=== PATIENT | male | born 1940 | race Native Hawaiian/Other Pacific Islander ===

== ENCOUNTER 2016-11-15 09:05 | Inpatient (IN) | payer MEDICARE, MEDICAID ==
[~2016-11-15] VITALS: Ht 157.5 cm; Wt 61.2 kg
[~2016-11-15 09:05] MED LIST: *INS REG3 SQ; ACET-868 GT; ALBU2.5V13 NEB; ALLA266C2 TP; ASCO500C16 GT; ASPI81TA2 GT; Blood Sugar Diagnostic IN; CHOL100040 GT; DEXT1DRO3 EACHEYE; DOCU50LI GT; Gel Dressing TP; HYDR-3326 GT; INSU100V10 SQ; INSU100V28 SQ; MAGN400O6 GT; METO25TA20 GT; METO25TA3 PO; NEPRO; NEPROVITE GT; NITR0.4T6 SL; Nutritional Supplement GT; OMEP40CA37 GT; POTA40LI2 GT; TRAM50TA2 GT; VORI200T PO
[2016-11-15] MEDS ORDERED: IV NS 0.9% 500 ML BAG IV ONE (09:30)
[2016-11-15 09:49] LABS: BASOPHILS # (AUTO) 0.4 /CMM (0.0-0.2); BASOPHILS % (AUTO) 1.3 % (0.0-2.0); DIFF TOTAL % 100 %; EOSINOPHILS # (AUTO) 1.5 /CMM (0.0-0.7); EOSINOPHILS % (AUTO) 5.2 % (0.0-6.0); HEMATOCRIT 41 % (39-51); HEMOGLOBIN 12.8 g/dL (13.5-17.5); LYMPHOCYTES # (AUTO) 2.7 /CMM (0.8-4.8); LYMPHOCYTES % (AUTO) 9.3 % (20.0-44.0); MEAN CORPUSCULAR HEMOGLOBIN 29 PG (26.0-33.0); MEAN CORPUSCULAR HGB CONC 31 g/dl (31.0-36.0); MEAN CORPUSCULAR VOLUME 94 fL (80-96); MONOCYTES # (AUTO) 0.3 /CMM (0.1-1.30); MONOCYTES % (AUTO) 1.1 % (2.0-12.0); NEUTROPHILS # (AUTO) 23.7 /CMM (1.8-8.9); NEUTROPHILS % (AUTO) 83.1 % (43.0-81.0); PLATELET COUNT (AUTO) 302 /CMM (150-450); RED BLOOD CELL COUNT(AUTO) 4.39 MIL/uL (4.5-6.0); WHITE BLOOD COUNT (AUTO) 28.6 K/uL (4.3-11.0)
[2016-11-15 10:02] LABS: INR 0.99 (0.87-1.13); PROTHROMBIN TIME 10.4 SECS (9.5-12.7)
[2016-11-15 10:04] LABS: ALBUMIN 3.4 g/dL (3.4-5.0); BILIRUBIN,DIRECT 0.1 mg/dL (0.0-0.2); BILIRUBIN,TOTAL 0.3 mg/dL (0.2-1.0); CALCIUM, SERUM 10.8 mg/dL (8.5-10.1); CREATININE 3.8 mg/dL (0.6-1.3); INDIRECT BILIRUBIN 0.2 mg/dL (0.0-1.1); POTASSIUM 4.2 mmol/L (3.5-5.1); TOTAL PROTEIN, SERUM 7.9 g/dL (6.4-8.2)
[2016-11-15 10:06] LABS: TROPONIN I 0.09 ng/mL (0.00-0.056)
[2016-11-15 10:10] VITALS: BP 139/80
[2016-11-15 10:10] LABS: BAND % (MANUAL) 3 % (0.0-5.0); EOSINOPHILS % (MANUAL) 3 % (0-4); LYMPHOCYTES % (MANUAL) 6 % (16-48); PLATELET ESTIMATE ADEQUATE
[2016-11-15 10:11] LABS: RBC MORPHOLOGY COMMENT NORMAL RBC MORPH
[2016-11-15] MEDS ORDERED: ATOR40TA GT (10:25)
[2016-11-15] MEDS ORDERED: DIPH25CA6 GT (10:25)
[2016-11-15] MEDS ORDERED: CALC667T2 GT (10:25)
[2016-11-15] MEDS ORDERED: LORA1TAB GT (10:25)
[2016-11-15] MEDS ORDERED: ASPI81TA2 GT (10:25)
[2016-11-15] MEDS ORDERED: FOLI0.8T2 GT (10:25)
[2016-11-15] MEDS ORDERED: HYDR10SY12 GT (10:25)
[2016-11-15] MEDS ORDERED: FERR220S2 GT (10:25)
[2016-11-15] MEDS ORDERED: CHOL100044 GT (10:25)
[2016-11-15] MEDS ORDERED: CARV3.12 GT (10:25)
[2016-11-15] MEDS ORDERED: SENN8.6T6 GT (10:25)
[2016-11-15] MEDS ORDERED: HYDR-3326 GT ×2 (10:25)
[2016-11-15] MEDS ORDERED: ONDA4TAB5 GT (10:25)
[2016-11-15] MEDS ORDERED: NUTR100037 GT (10:30)
[2016-11-15 11:45] VITALS: BP 118/68
[2016-11-15] MEDS ORDERED: LORAZEPAM 1 MG TABLET GT PRN (12:00)
[2016-11-15] MEDS ORDERED: hydrOXYzine HCL SYRUP 10 MG/5 ML UDC GT PRN (12:00)
[2016-11-15] MEDS ORDERED: diphenhydrAMINE HCL 25 MG CAPSULE PO PRN (12:00)
[2016-11-15] MEDS ORDERED: HYDROCODONE/APAP 5/325MG 1 EACH TABLET GT PRN (12:00)
[2016-11-15] MEDS ORDERED: ACETAMINOPHEN 325 MG TABLET PO PRN ×2 (12:00→14:30)
[2016-11-15] MEDS: CALCIUM ACETATE 667 MG TABLET GT SCH ×2 (12:26→16:08)
[2016-11-15] MEDS ORDERED: RENAL NOVASOURCE 1,000 ML BOTTLE GT PRN ×2 (12:30→14:00)
[2016-11-15] MEDS ORDERED: ONDANSETRON 4 MG TAB.RAPDIS PO PRN (12:30)
[2016-11-15] MEDS ORDERED: ZOLPIDEM TARTRATE 5 MG TABLET PO PRN (14:30)
[2016-11-15] MEDS ORDERED: MAGNESIUM HYDROXIDE 30 ML UDC PO PRN (14:30)
[2016-11-15] MEDS ORDERED: ONDANSETRON HCL/PF 4 MG/2 ML VIAL IVP PRN (14:30)
[2016-11-15] MEDS ORDERED: Z GUARD REMEDY 2 OZ OINT TP PRN (14:30)
[2016-11-15] MEDS ORDERED: HYDROCODONE/APAP 5/325MG 1 EACH TABLET PO PRN (14:30)
[2016-11-15] MEDS ORDERED: DEXTROSE 50%-WATER 50 ML DISP.SYRIN IV PRN (14:30)
[2016-11-15] MEDS ORDERED: MAG HYDROX/AL HYDROX/SIMETH 30 ML UDC PO PRN (14:30)
[2016-11-15] MEDS ORDERED: *INSULIN REGULAR(HUMULIN R)HUM 100 UNIT/ML VIAL SQ PRN (14:30)
[2016-11-15] MEDS ORDERED: SECONDARY IV SET 1 EA INFUS.SET MC ONE (15:41)
[2016-11-15] MEDS ORDERED: IV SET PRIMARY PUMP SET 1 EA INFUS.SET MC ONE (15:41)
[2016-11-15] MEDS ORDERED: IV NS 0.9% 250 ML IV ONE (15:41)
[2016-11-15 16:00] VITALS: BP 116/66
[2016-11-15] MEDS: FERROUS SULFATE UDC 300 MG/5 ML UDC GT SCH (16:08)
[2016-11-15] MEDS: MEROPENEM 500 MG in IV NS 0.9% 50 ML IV SCH (16:08)
[2016-11-15] MEDS: CARVEDILOL 3.125 MG TABLET GT SCH (16:09)
[2016-11-15] MEDS: BLOOD SUGAR DIAGNOSTIC 1 EACH STRIP VI SCH ×2 (17:04→21:56)
[2016-11-15] MEDS: INSULIN REGULAR, HUMAN 100 UNIT/ML 3 ML VIAL SQ PRN (17:08)
[2016-11-15 20:00] VITALS: BP 133/67
[2016-11-15] MEDS ORDERED: MEROPENEM 500 MG in IV NS 0.9% 50 ML IV SCH (21:00)
[2016-11-16] VITALS (7 sets, daily range): BP systolic 116–133; BP diastolic 61–69
[2016-11-16] MEDS: SENNOSIDES 8.6 MG TABLET GT SCH ×2 (00:39→21:05)
[2016-11-16] MEDS: ATORVASTATIN 40 MG TABLET GT SCH ×2 (00:39→21:05)
[2016-11-16] MEDS ORDERED: ALBUTEROL FS 2.5 MG/0.5 ML VIAL.NEB ONE (04:48)
[2016-11-16] MEDS ORDERED: IPRATROPIUM NEB FS 0.5 MG/2.5 ML AMPUL.NEB ONE (04:48)
[2016-11-16] MEDS: IPRATROPIUM NEB FS 0.5 MG/2.5 ML AMPUL.NEB NEB SCH ×4 (04:53→19:33)
[2016-11-16] MEDS: ALBUTEROL FS 2.5 MG/0.5 ML VIAL.NEB NEB SCH ×4 (04:53→19:33)
[2016-11-16] MEDS: BLOOD SUGAR DIAGNOSTIC 1 EACH STRIP VI SCH ×4 (06:32→21:13)
[2016-11-16 07:17] LABS: BASOPHILS % (AUTO) 0.5 % (0.0-2.0); DIFF TOTAL % 100 %; EOSINOPHILS # (AUTO) 0.8 /CMM (0.0-0.7); EOSINOPHILS % (AUTO) 9.1 % (0.0-6.0); HEMATOCRIT 30 % (39-51); HEMOGLOBIN 9.7 g/dL (13.5-17.5); LYMPHOCYTES # (AUTO) 0.7 /CMM (0.8-4.8); MEAN CORPUSCULAR HEMOGLOBIN 30 PG (26.0-33.0); MEAN CORPUSCULAR HGB CONC 33 g/dl (31.0-36.0); MEAN CORPUSCULAR VOLUME 94 fL (80-96); MONOCYTES # (AUTO) 0.6 /CMM (0.1-1.30); MONOCYTES % (AUTO) 6.9 % (2.0-12.0); NEUTROPHILS % (AUTO) 75.5 % (43.0-81.0); PLATELET COUNT (AUTO) 124 /CMM (150-450); RED BLOOD CELL COUNT(AUTO) 3.19 MIL/uL (4.5-6.0); WHITE BLOOD COUNT (AUTO) 9.3 K/uL (4.3-11.0)
[2016-11-16 07:44] LABS: CALCIUM, SERUM 9.2 mg/dL (8.5-10.1); CREATININE 2.8 mg/dL (0.6-1.3); PHOSPHORUS 1.6 mg/dL (2.5-4.9)
[2016-11-16] MEDS: FERROUS SULFATE UDC 300 MG/5 ML UDC GT SCH ×2 (08:58→16:32)
[2016-11-16] MEDS: CALCIUM ACETATE 667 MG TABLET GT SCH ×3 (08:58→16:32)
[2016-11-16] MEDS: CHOLECALCIFEROL 1,000 UNIT TABLET (VIT D3) GT SCH (08:59)
[2016-11-16] MEDS: PANTOPRAZOLE 40 MG/PACK PACK GT SCH (08:59)
[2016-11-16] MEDS: VIT B CMPLX 3/FA/VIT C/BIOTIN 1 TAB TABLET PO SCH (08:59)
[2016-11-16] MEDS: CARVEDILOL 3.125 MG TABLET GT SCH ×2 (08:59→16:33)
[2016-11-16] MEDS: ASPIRIN 81 MG TAB.CHEW GT SCH (08:59)
[2016-11-16] MEDS: HYDROCODONE/APAP 5/325MG 1 EACH TABLET GT SCH (09:00)
[2016-11-16] MEDS ORDERED: Medication Not On Formulary EA (Omeprazole 40 MG) GT SCH (09:00)
[2016-11-16] MEDS: HEPARIN SODIUM, PORCINE 5000 UNITS/1 ML VIAL SQ SCH ×2 (11:25→21:05)
[2016-11-16] MEDS ORDERED: Sodium Phosphate 7.5 MMOL in IV D5W 100 ML IV ONE (12:00)
[2016-11-16] MEDS ORDERED: SECONDARY IV SET 1 EA INFUS.SET MC ONE (12:42)
[2016-11-16] MEDS: MEROPENEM 500 MG in IV NS 0.9% 50 ML IV SCH (16:32)
[2016-11-16] MEDS ORDERED: NEUTRA PHOS 1 POWD.PACKET NG ONE (17:00)
[2016-11-16] MEDS: INSULIN REGULAR, HUMAN 100 UNIT/ML 3 ML VIAL SQ PRN (17:13)
[2016-11-17] VITALS (13 sets, daily range): BP systolic 60–163; BP diastolic 51–82
[2016-11-17] MEDS: ALBUTEROL FS 2.5 MG/0.5 ML VIAL.NEB NEB SCH ×3 (01:22→13:35)
[2016-11-17] MEDS: IPRATROPIUM NEB FS 0.5 MG/2.5 ML AMPUL.NEB NEB SCH ×3 (01:22→13:35)
[2016-11-17] MEDS: BLOOD SUGAR DIAGNOSTIC 1 EACH STRIP VI SCH ×3 (06:34→16:14)
[2016-11-17 06:40] LABS: BASOPHILS % (AUTO) 0.5 % (0.0-2.0); DIFF TOTAL % 100 %; EOSINOPHILS # (AUTO) 0.9 /CMM (0.0-0.7); EOSINOPHILS % (AUTO) 10.8 % (0.0-6.0); HEMATOCRIT 29 % (39-51); HEMOGLOBIN 9.6 g/dL (13.5-17.5); LYMPHOCYTES # (AUTO) 0.8 /CMM (0.8-4.8); LYMPHOCYTES % (AUTO) 8.6 % (20.0-44.0); MEAN CORPUSCULAR HEMOGLOBIN 31 PG (26.0-33.0); MEAN CORPUSCULAR HGB CONC 33 g/dl (31.0-36.0); MEAN CORPUSCULAR VOLUME 93 fL (80-96); MONOCYTES # (AUTO) 0.5 /CMM (0.1-1.30); MONOCYTES % (AUTO) 6.2 % (2.0-12.0); NEUTROPHILS # (AUTO) 6.5 /CMM (1.8-8.9); NEUTROPHILS % (AUTO) 73.9 % (43.0-81.0); PLATELET COUNT (AUTO) 124 /CMM (150-450); RED BLOOD CELL COUNT(AUTO) 3.13 MIL/uL (4.5-6.0); WHITE BLOOD COUNT (AUTO) 8.8 K/uL (4.3-11.0)
[2016-11-17 07:46] LABS: CALCIUM, SERUM 8.9 mg/dL (8.5-10.1); CREATININE 3.6 mg/dL (0.6-1.3); POTASSIUM 4.2 mmol/L (3.5-5.1)
[2016-11-17] MEDS: VIT B CMPLX 3/FA/VIT C/BIOTIN 1 TAB TABLET PO SCH (08:05)
[2016-11-17] MEDS: ASPIRIN 81 MG TAB.CHEW GT SCH (08:05)
[2016-11-17] MEDS: CALCIUM ACETATE 667 MG TABLET GT SCH ×3 (08:05→16:13)
[2016-11-17] MEDS: CARVEDILOL 3.125 MG TABLET GT SCH ×2 (08:06→16:14)
[2016-11-17] MEDS: HYDROCODONE/APAP 5/325MG 1 EACH TABLET GT SCH (08:06)
[2016-11-17] MEDS: FERROUS SULFATE UDC 300 MG/5 ML UDC GT SCH ×2 (08:06→16:13)
[2016-11-17] MEDS: CHOLECALCIFEROL 1,000 UNIT TABLET (VIT D3) GT SCH (08:06)
[2016-11-17] MEDS: PANTOPRAZOLE 40 MG/PACK PACK GT SCH (08:07)
[2016-11-17] MEDS: HEPARIN SODIUM, PORCINE 5000 UNITS/1 ML VIAL SQ SCH (08:07)
[2016-11-17 08:49] LABS: TROPONIN I 0.818 ng/mL (0.00-0.056)
[2016-11-17 09:22] LABS: THYROID STIMULATING HORMONE 3.035 uIU/mL (0.358-3.74)
[2016-11-17] MEDS ORDERED: MUPIROCIN OINT 2% 22 GM TUBE SCH (11:00)
[2016-11-17] MEDS ORDERED: HYDROGEL DRESSING 90 GM TUBE TP PRN (11:00)
[2016-11-17] MEDS ORDERED: HYDROGEL DRESSING 90 GM TUBE TP SCH (11:00)
[2016-11-17] MEDS ORDERED: MERO500V3 IV (14:18)
[2016-11-17] MEDS: MEROPENEM 500 MG in IV NS 0.9% 50 ML IV SCH (16:13)
== END 2016-11-17 22:05 | DRG 871 ==
LOC: ER 09:06 → TELE1 10:56
PROVIDERS: ADMIT Internal Medicine; ATTEND Internal Medicine
PROC: 5A1945Z Respiratory Ventilation, 24-96 Consecutive Hours (ICD-10-PCS; principal; 2016-11-15)
PROC: 5A1D60Z (ICD-10-PCS; 2016-11-15)
DX: A41.9 Sepsis, unspecified organism (principal); I21.4 Non-ST elevation (NSTEMI) myocardial infarction; N18.6 End stage renal disease; J96.01 Acute respiratory failure with hypoxia; J69.0 Pneumonitis due to inhalation of food and vomit; L89.154 Pressure ulcer of sacral region, stage 4; K72.00 Acute and subacute hepatic failure without coma; I12.0 Hypertensive chronic kidney disease with stage 5 chronic kidney disease or end stage renal disease; Z99.11 Dependence on respirator [ventilator] status; Z99.2 Dependence on renal dialysis; E11.22 Type 2 diabetes mellitus with diabetic chronic kidney disease; E78.5 Hyperlipidemia, unspecified; E87.70 Fluid overload, unspecified; G40.909 Epilepsy, unspecified, not intractable, without status epilepticus; K21.9 Gastro-esophageal reflux disease without esophagitis; Z88.0 Allergy status to penicillin; D63.8 Anemia in other chronic diseases classified elsewhere; E83.52 Hypercalcemia; I49.9 Cardiac arrhythmia, unspecified; R74.8 Abnormal levels of other serum enzymes; Z93.1 Gastrostomy status; Z93.0 Tracheostomy status; R65.20 Severe sepsis without septic shock
CPT/HCPCS: 31720; 36415; 71010-TC; 76705-TC; 80048-TC; 80076-TC; 82306; 82728-TC; 82962-TC; 83540-TC; 83605-TC; 83735-TC; 84100-TC; 84439-TC; 84443-TC; 84484-TC; 85025-TC; 85730-TC; 87040-TC; 87081-TC; 90935-TC; 94003-TC; 94760-TC; A4216; A4606; A4623; A6248; A6402; A7526; A9563; J1644; J1815; J2185; J7050; J7060; Q0177; Z7610

== ENCOUNTER 2017-07-11 20:06 | Inpatient (IN) | payer MEDICARE, OTHER ==
[~2017-07-11] VITALS: Ht 172.7 cm; Wt 66.9 kg
[~2017-07-11 20:06] MED LIST changes: -*INS REG3 SQ; -ALBU2.5V13 NEB; -ALLA266C2 TP; -ASCO500C16 GT; +ATOR40TA GT; -Blood Sugar Diagnostic IN; +CALC667T2 GT; +CARV3.12 GT; -CHOL100040 GT; +CHOL100044 GT; -DEXT1DRO3 EACHEYE; +DIPH25CA6 GT; -DOCU50LI GT; +FERR220S2 GT; +FOLI0.8T2 GT; -Gel Dressing TP; +HYDR10SY12 GT; -INSU100V10 SQ; -INSU100V28 SQ; +LORA1TAB GT; -MAGN400O6 GT; +MERO500V3 IV; -METO25TA20 GT; -METO25TA3 PO; -NEPRO; -NEPROVITE GT; -NITR0.4T6 SL; +NUTR100037 GT; -Nutritional Supplement GT; +ONDA4TAB5 GT; -POTA40LI2 GT; +SENN8.6T6 GT; -TRAM50TA2 GT; -VORI200T PO
--- NOTE | 2017-07-11 20:20 | NUR ---
PT SAAD FROM [facility] FOR NAUSEA AND VOMITING COFFEE GROUND EMESIS X 1.5 HOURS. PT AO RR EVEN AND UNLABORED. TRACH INTACT AND PATENT CONNECTED TO VENT WITH PRESCRIBED SETTINGS. PT WITH GTUBE INTACT AND PATENT. NO S/S INFECTION, - RESIDUALS. PT GOWNED AND PLACED ON MONITOR WAITING FOR MD MATTHEWS.
--- NOTE | 2017-07-11 20:21 | NUR ---
VENT SETTINGS" AC 16 VT 550 FI02 30% PEEP 5
[2017-07-11 20:41] VITALS: BP 150/103
--- NOTE | 2017-07-11 20:44 | NUR ---
PT REC'D TRACHED PORTEX 8 VIA [facility] VENT SETTING GIVEN FROM TRANSPORT RT. NO RESP DISTRESS NOTED. SX THICK YELLOW MOD AMT OF SECRETIONS. BUILDING PRESSURE WASHER CUFF PRESSURE NOTED. ALARMS ARE SET AND AUDIBLE PER POLICY. VENT PLUGGED INTO RED OUTLET. AMBU BAG BEDSIDE. WILL CONTINUE TO MONITOR PT. Addendum: 07/11/17 at 2044 by MERT RIOS RT Amended: Links added.
--- NOTE | 2017-07-11 21:14 | NUR ---
PT TO RADIOLOGY FOR CT, RT WITH PT.
[2017-07-11 21:15] LABS: BASOPHILS % (AUTO) 0.1 % (0.0-2.0); EOSINOPHILS # (AUTO) 0.1 /CMM (0.0-0.7); EOSINOPHILS % (AUTO) 0.5 % (0.0-6.0); HEMATOCRIT 37 % (39-51); HEMOGLOBIN 11.8 g/dL (13.5-17.5); LYMPHOCYTES # (AUTO) 0.5 /CMM (0.8-4.8); LYMPHOCYTES % (AUTO) 3.3 % (20.0-44.0); MEAN CORPUSCULAR HEMOGLOBIN 30 PG (26.0-33.0); MEAN CORPUSCULAR HGB CONC 32 g/dl (31.0-36.0); MEAN CORPUSCULAR VOLUME 95 fL (80-96); MONOCYTES # (AUTO) 0.3 /CMM (0.1-1.30); NEUTROPHILS # (AUTO) 14.9 /CMM (1.8-8.9); NEUTROPHILS % (AUTO) 94.1 % (43.0-81.0); PLATELET COUNT (AUTO) 336 /CMM (150-450); RDW COEFFICIENT OF VARIATION 18.7 (11.5-15.0); RED BLOOD CELL COUNT(AUTO) 3.92 MIL/uL (4.5-6.0); WHITE BLOOD COUNT (AUTO) 15.8 K/uL (4.3-11.0)
[2017-07-11 21:23] LABS: INR 0.99 (0.87-1.13); PROTHROMBIN TIME 10.3 SECS (9.5-12.7)
[2017-07-11 21:25] LABS: ALANINE AMINOTRANSFERASE 136 U/L (12-78); ALBUMIN 3.7 g/dL (3.4-5.0); ALKALINE PHOSPHATASE 242 U/L (46-116); ASPARTATE AMINOTRANSFERASE 108 U/L (15-37); BILIRUBIN,DIRECT 0.1 mg/dL (0.0-0.2); BILIRUBIN,TOTAL 0.4 mg/dL (0.2-1.0); CALCIUM, SERUM 10.4 mg/dL (8.5-10.1); CARBON DIOXIDE 28 mmol/L (21-32); CHLORIDE 101 mmol/L (98-107); CREATININE 3.7 mg/dL (0.6-1.3); GLUCOSE 201 mg/dL (74-106); LIPASE 326 U/L (73-393); POTASSIUM 3.8 mmol/L (3.5-5.1); SODIUM SERUM 140 mmol/L (136-145); TOTAL PROTEIN, SERUM 8.5 g/dL (6.4-8.2); UREA NITROGEN, BLOOD 43 mg/dL (7-18)
--- NOTE | 2017-07-11 21:38 | NUR ---
PT RETURNED FROM CT
--- NOTE | 2017-07-11 21:59 | NUR ---
PAGED DR MARTY DELANEY UKE DRIVER FOR Sissy HEARD
--- NOTE | 2017-07-11 22:01 | NUR ---
GASTRO OCCULT COLLECTED VIA GT. PER DR. TURNER TO HOLD NGT. CONTINUOUS SUCTION VIA GT AT THIS TIME.
[2017-07-11 22:25] VITALS: BP 102/61
--- NOTE | 2017-07-11 22:27 | NUR ---
PT APPEARS COMFORTABLE AT THIS TIME. NAD NOTED. FAMILY AT BEDSIDE
--- NOTE | 2017-07-11 22:30 | NUR ---
RECEIVED REPORT FROM DR. MARTY DELANEY
[2017-07-12] VITALS (7 sets, daily range): BP systolic 94–116; BP diastolic 45–67
--- NOTE | 2017-07-12 00:02 | NUR ---
REPORT GIVEN KITA BRYANT FOR [facility] [id number]
--- NOTE | 2017-07-12 00:11 | NUR ---
PT TRANSFERRED PER ACLS PROTOCOL.
--- NOTE | 2017-07-12 00:15 | NUR ---
VIVIANA ADMITTING RN NOTE ADMITTED 77 YR OLD MALE SFP FOR N/V COFFEE GROUND EMESIS TO ER, ADMITTING DIAGNOSIS GIB. PT ON VENT AC 16, TV 500, FIO2 30% AND PEEP +5. AWAKE NON VERBAL, ABLE TO NODE YES OR NO WHEN ASKED QUESTIONS, DENIES ANY PAIN OR DISTRESS, RECEIVED WITH ORDER FOR LOW INTERMITTENT SUCTION VIA GT, ONLY 50 ML BROWN GASTRIC CONTENT SUCTIONED OUT. HEAD TO TOE SKIN ASSESSMENT DONE PER PROTOCOL, WITH PICTURES TAKEN AND FILED. ADMITTING MD NOTIFIED WITH ALL ORDERS CARRIED OUT. ALL PT NEEDS MET AT THIS TIME WELL SAFETY MEASURES IN PLACE. WILL CONT' TO MONITOR PT, ON D5 1/2 NS @ 40 ML/HR RUNNING ON R HAND 20 #G, WELL TOLERATED, NO INFILTRATION NOTED. PT HAS ALSO A LAC# 18 G FLUSHED AND PATENT.
--- NOTE | 2017-07-12 02:19 | NUR ---
SPOKE TO DR. MARTY DELANEY TO CLARIFY ADMISSION ORDERS, INFORMED MD, MINIMAL OUTPUT IS COMING OUT OF GT LOW INTERMITTENT SUCTION, AND MUCUS COLOR. PER MD STOP LOW INTERMITTENT SUCTION AND PLACE PATIENT NPO EXCEPT MEDS. NOTED. INFORMED PRIMARY NURSE.
--- NOTE | 2017-07-12 07:42 | NUR ---
VIVIANA RN NOTE PATIENT IN BED ,AWAKE OPEN HIS EYES WHEN CALLING HIS NAME ,, ON TELE MONITOR SR 72 , WITH TRACH TO VENT SETTING ORDERED, AMBU BAG AT HOB AT ALL TIME, NPO AT THIS TIME ,ON IVF ORDERED, ON IVF ORDERED, HL ON LT AC AND RT HAND INTACT, AND PATENT , BED IN LOWEST AND LOCKED POSITION , CALL LIGHT WITHIN REACH , PLAN OF CARE DECLASSED WITH PATIENT , WILL CONT TO MONITOR CLOSELY
[2017-07-12 08:02] LABS: BASOPHILS % (AUTO) 0.4 % (0.0-2.0); EOSINOPHILS # (AUTO) 0.1 /CMM (0.0-0.7); EOSINOPHILS % (AUTO) 1.4 % (0.0-6.0); HEMATOCRIT 32 % (39-51); LYMPHOCYTES # (AUTO) 1.2 /CMM (0.8-4.8); LYMPHOCYTES % (AUTO) 12.3 % (20.0-44.0); MEAN CORPUSCULAR HEMOGLOBIN 30 PG (26.0-33.0); MEAN CORPUSCULAR HGB CONC 32 g/dl (31.0-36.0); MEAN CORPUSCULAR VOLUME 95 fL (80-96); MONOCYTES # (AUTO) 1.2 /CMM (0.1-1.30); MONOCYTES % (AUTO) 12.1 % (2.0-12.0); NEUTROPHILS # (AUTO) 7.4 /CMM (1.8-8.9); NEUTROPHILS % (AUTO) 73.8 % (43.0-81.0); PLATELET COUNT (AUTO) 272 /CMM (150-450); RDW COEFFICIENT OF VARIATION 18.2 (11.5-15.0); RED BLOOD CELL COUNT(AUTO) 3.32 MIL/uL (4.5-6.0)
[2017-07-12 08:27] LABS: CALCIUM, SERUM 9.5 mg/dL (8.5-10.1); CARBON DIOXIDE 24 mmol/L (21-32); CHLORIDE 106 mmol/L (98-107); CREATININE 4.5 mg/dL (0.6-1.3); GLUCOSE 141 mg/dL (74-106); PHOSPHORUS 4.8 mg/dL (2.5-4.9); POTASSIUM 3.8 mmol/L (3.5-5.1); SODIUM SERUM 145 mmol/L (136-145); UREA NITROGEN, BLOOD 48 mg/dL (7-18)
--- NOTE | 2017-07-12 12:00 | NUR ---
VIVIANA RN NOTE SPOKE WITH DR DELANEY NOTIFIED THAT NO MORE GI BLEEDING NOTED , STILL ON NPO , OK TO PLACE ON DVT PUMP BOTH LEGS , ALSO STATED THAT DR MART GI DOCTOR WILL SEE PATIENT SOON, WILL F\U WITH DR HUFF ALSO PER RESPIRATORY PT ON VENT WILL F\U
--- NOTE | 2017-07-12 14:30 | NUR ---
PREFABRICATED HOUSES TRIMMER NOTE KEEP CLEAN DRY , AT BEDSIDE , DR HUFF DOCTOR OF OPTOMETRY NOTIFIED ABOUT THIS PATIENT VENT , WILL CONT TO MONITOR CLOSELY
--- NOTE | 2017-07-12 15:56 | NUR ---
[place] PACKER NOTE DR MART AT BEDSIDE, OFFERED TO EGD BUT FAMILY REFUSED TO DO , SIGNED CONSENT FOR DEBRIDEMENT OF SACRAL
[2017-07-12 16:44] LABS: ABG BASE EXCESS -0.5 mmol/L; ABG OXYGEN SATURATION 96.4 % (92.0-98.5); ABG PCO2 32.7 mmHg (35.0-45.0); ABG PH 7.461 (7.350-7.450); ABG PO2 93.6 mmHg (75.0-100.0); AaDO2 81.9 mmHg; COHb 0.3 % (0.5-1.5); MetHb 0.6 % (0.0-1.5); O2Hb 95.5 % (94.0-97.0); PEEP,BG 5 cm H2O; SITE, ABG Right Radial; VT, ABG 550 mL
--- NOTE | 2017-07-12 17:36 | NUR ---
VIVIANA RN NOTE [facility] APPALLED ORDERED ,KEEP CLEAN DRY
--- NOTE | 2017-07-12 18:25 | NUR ---
VIVIANA RN NOTE ALL NEEDS ATTENDED, NOT IN ACTE DISTRESS, FAMILY AT BEDSIDE
--- NOTE | 2017-07-12 19:30 | NUR ---
RN INITIAL NOTES RECEIVED PATIENT IN BED, AWAKE, ALERT AND ORIENTED X1-2, NONVERBAL DUE TO TRACH, BUT ABLE TO NOD YES/NO. TRACH MIDLINE AND INTACT, ON MECHANICAL VENT AT PRESCRIBED SETTINGS, TOLERATING WELL, FREE FROM ANY S/S OF RESPIRATORY DISTRESS. PATIENT ON TELEMETRY MONITORING, REVEALING SINUS RHYTHM WITH 1ST DEGREE AV BLOCK, HR = 68 AT THIS TIME. GT PATENT AND INTACT, KEPT CLAMPED AT THIS TIME. NOTED WITH RIGHT CHEST WALL HD CATH, DRESSING CLEAN, DRY, AND INTACT. CALL LIGHT LEFT WITHIN EASY RANGE, BED IN LOWEST AND LOCKED POSITION. WILL CONTINUE TO CLOSELY MONITOR
[2017-07-13] VITALS: BP 109/63
[2017-07-13 04:00] VITALS: BP 121/69
--- NOTE | 2017-07-13 07:00 | NUR ---
RN CLOSING NOTES PATIENT ENDORSED TO THE AM SHIFT NURSE FOR SHAY. NO ACUTE EVENTS OCCURRED THROUGHOUT SHIFT.
--- NOTE | 2017-07-13 07:00 | NUR ---
RN NOTES RECEIVED PATIENT ON BED,A/Ox3, MOUTH WORDS , VENT/TRACH DEPENDENT , TOLERATING CURRENT VENT SETTING WELL, TRACH MIDLINE AND INTACT, NO DISTRESS NOTED, ON TELE SR WITH ST DEGREE AV BLOCK IN 50'S, GT PATENT AND INTACT, KEPT CLAMPED AT THIS TIME. RIGHT CHEST WALL HD CATH, DRESSING CLEAN, DRY, AND INTACT. CALL LIGHT WITHIN EASY REACH, BED IN LOWEST AND LOCKED POSITION. CONTINUE TO MONITOR PT CLOSELY .
[2017-07-13 07:25] LABS: CALCIUM, SERUM 9.9 mg/dL (8.5-10.1); CARBON DIOXIDE 25 mmol/L (21-32); CHLORIDE 105 mmol/L (98-107); CREATININE 6.2 mg/dL (0.6-1.3); GLUCOSE 129 mg/dL (74-106); MAGNESIUM 3.1 mg/dL (1.8-2.4); PHOSPHORUS 5.2 mg/dL (2.5-4.9); POTASSIUM 3.9 mmol/L (3.5-5.1); SODIUM SERUM 144 mmol/L (136-145); UREA NITROGEN, BLOOD 66 mg/dL (7-18)
[2017-07-13 07:26] LABS: IRON, SERUM 30 ug/dl (50-175); TOTAL IRON BINDING CAPACITY 184 ug/dl (250-450)
[2017-07-13 07:37] LABS: BASOPHILS # (AUTO) 0.1 /CMM (0.0-0.2); BASOPHILS % (AUTO) 0.7 % (0.0-2.0); EOSINOPHILS # (AUTO) 0.7 /CMM (0.0-0.7); EOSINOPHILS % (AUTO) 6.9 % (0.0-6.0); HEMATOCRIT 32 % (39-51); HEMOGLOBIN 9.9 g/dL (13.5-17.5); LYMPHOCYTES # (AUTO) 1.1 /CMM (0.8-4.8); LYMPHOCYTES % (AUTO) 10.5 % (20.0-44.0); MEAN CORPUSCULAR HEMOGLOBIN 30 PG (26.0-33.0); MEAN CORPUSCULAR HGB CONC 32 g/dl (31.0-36.0); MEAN CORPUSCULAR VOLUME 95 fL (80-96); MONOCYTES # (AUTO) 1.1 /CMM (0.1-1.30); MONOCYTES % (AUTO) 10.3 % (2.0-12.0); NEUTROPHILS # (AUTO) 7.7 /CMM (1.8-8.9); NEUTROPHILS % (AUTO) 71.6 % (43.0-81.0); PLATELET COUNT (AUTO) 269 /CMM (150-450); RDW COEFFICIENT OF VARIATION 18.6 (11.5-15.0); RED BLOOD CELL COUNT(AUTO) 3.31 MIL/uL (4.5-6.0); WHITE BLOOD COUNT (AUTO) 10.7 K/uL (4.3-11.0)
[2017-07-13 08:00] VITALS: BP 128/49
--- NOTE | 2017-07-13 08:37 | NUR ---
WOUND CARE CONSULT: PT PRESENTS WITH STAGE 4 ULCER TO SACRAL AREA, PRESENT ON ADMISSION. PT NOTED TO HAVE DISCOLORATION PINK/RED COLOR TO RT FLANK AREA. DEFER TO MD FOR SKIN DISCOLORATION. DEFER TO SURGICAL TEAM FOR WOUND TREATMENT PLAN. PT ON FIRST STEP MATTRESS. ALL SKIN PROTECTION MEASURES IN PLACE AND DISCUSSED WITH NURSING STAFF. WILL SEE PRN. IN AGREEMENT WITH PLAN OF CARE. Addendum: 07/13/17 at 0839 by SHAYNA LÓPEZ WNDNU Amended: Links added.
--- NOTE | 2017-07-13 11:17 | NUR ---
RN NOTES REPORT GIVEN TO [facility] FOR SHAY.
[2017-07-13 12:00] VITALS: BP 117/42
--- NOTE | 2017-07-13 15:55 | NUR ---
RN NOTE ASKED DR CERON IF WE CAN START G TUBE FEEDING SINCE PT AND FAMILY REFUSED EGD EARLIER, HE SAID YES. WILL CARRY OUT AND MONITOR
[2017-07-13 16:00] VITALS: BP 121/44
--- NOTE | 2017-07-13 19:30 | NUR ---
HOSPITAL SECURITY OFFICER NOTES: RECEIVED PT. IN BED ALERT AND ORIENTED X 2 ABLE TO MAKE SIMPLE NEEDS KNOWN. W/ TRACH PORTEX # 7 W/ TOLERATING VENT SETTINGS WELL. ON TELE MONTIOR SR W/ 1ST AV BLOCK 66. RCHEST WALL HD CATH W/ + BRUIT/THRILL. W/ LT AND RT HL PATENT AND INTACT W/ NO S/S OF INFECTION OR INFILTRATION NOTED. TOLERATING GT FEEDING WELL. NO RESIDUAL NOTED. BED LEFT IN LOWEST POSITION AND LOCKED. CALL LIGHT W/ IN REACH.
[2017-07-13 20:00] VITALS: BP 125/85
[2017-07-14] VITALS: BP 125/78
[2017-07-14 04:00] VITALS: BP 154/80
--- NOTE | 2017-07-14 06:00 | NUR ---
VIVIANA RN NOTES: NO ACUTE CHANGES NOTED. TOLERATING VENT SETTINGS WELL. WILL ENDORSE TO NEXT SHIFT TO CONTINUE OF CARE.
[2017-07-14 06:27] LABS: BASOPHILS % (AUTO) 0.3 % (0.0-2.0); EOSINOPHILS # (AUTO) 0.9 /CMM (0.0-0.7); EOSINOPHILS % (AUTO) 9.8 % (0.0-6.0); HEMATOCRIT 30 % (39-51); HEMOGLOBIN 9.6 g/dL (13.5-17.5); LYMPHOCYTES # (AUTO) 0.8 /CMM (0.8-4.8); LYMPHOCYTES % (AUTO) 8.4 % (20.0-44.0); MEAN CORPUSCULAR HEMOGLOBIN 31 PG (26.0-33.0); MEAN CORPUSCULAR HGB CONC 32 g/dl (31.0-36.0); MEAN CORPUSCULAR VOLUME 95 fL (80-96); MONOCYTES # (AUTO) 0.8 /CMM (0.1-1.30); MONOCYTES % (AUTO) 8.4 % (2.0-12.0); NEUTROPHILS # (AUTO) 6.7 /CMM (1.8-8.9); NEUTROPHILS % (AUTO) 73.1 % (43.0-81.0); PLATELET COUNT (AUTO) 283 /CMM (150-450); RDW COEFFICIENT OF VARIATION 17.6 (11.5-15.0); RED BLOOD CELL COUNT(AUTO) 3.14 MIL/uL (4.5-6.0); WHITE BLOOD COUNT (AUTO) 9.2 K/uL (4.3-11.0)
[2017-07-14 06:53] LABS: CALCIUM, SERUM 9.3 mg/dL (8.5-10.1); CARBON DIOXIDE 20 mmol/L (21-32); CHLORIDE 104 mmol/L (98-107); CREATININE 7.2 mg/dL (0.6-1.3); GLUCOSE 151 mg/dL (74-106); MAGNESIUM 2.9 mg/dL (1.8-2.4); PHOSPHORUS 6.1 mg/dL (2.5-4.9); POTASSIUM 3.7 mmol/L (3.5-5.1); SODIUM SERUM 143 mmol/L (136-145); UREA NITROGEN, BLOOD 77 mg/dL (7-18)
--- NOTE | 2017-07-14 07:34 | NUR ---
cyndie RN NOTES: RECEIVED PT. IN BED ALERT AND ORIENTED X 2 ABLE TO MAKE SIMPLE NEEDS KNOWN. W/ TRACH TO VENT SETTINGS ORDERED ON TELE MONITOR SR W/ 1ST AV BLOCK . RC CHEST WALL HD CATH ,LT AC AND RT HL PATENT AND INTACT ,NO S/S OF INFECTION OR INFILTRATION NOTED. ON G TUBE FEEDING ORDERED ,TOLERATING GT FEEDING WELL. NO RESIDUAL NOTED ,HOB ELEVATED AT ALL TIME . BED IN LOWEST POSITION AND LOCKED. CALL LIGHT WITHIN REACH. ON [facility] [facility] FOR SKIN MANAGEMENT, WILL CONT TO MONITOR CLOSELY
[2017-07-14 08:00] VITALS: BP 126/60
--- NOTE | 2017-07-14 09:18 | NUR ---
Patient on vent. and vent settings as ordered. Vent plugged into red outlet and alarms set and functioning. Ambu bag at the bed side. Breath sounds equal bilateral. Suctioned as needed.
--- NOTE | 2017-07-14 10:30 | NUR ---
VIVIANA RN NOTE ON HD AT THIS TIME WILL F\U
[2017-07-14 12:00] VITALS: BP 110/65
--- NOTE | 2017-07-14 12:55 | NUR ---
VIVIANA RN NOTE HD COMPLETED BP 118/54 HR 72 REMOVED 1.6.L WILL CONT TO MONITOR CLOSELY , KEEP LEAN DRY , NOT IN ACCUSE DISTRESS
--- NOTE | 2017-07-14 15:55 | NUR ---
VIVIANA RN NOTE PER DIETARY OK TO CHANGE G TUBE FEEDING T 40 ML PER HOUR X 24 HOUR , ORDER CARRIED OUT
[2017-07-14 16:00] VITALS: BP_SYST 104; BP_SYST 96; BP_DIAS 62; BP_DIAS 65
--- NOTE | 2017-07-14 18:24 | NUR ---
VIVIANA RN NOTE ALL NEEDS ATTENDED, AT BEDSIDE, ALL NEEDS ATTENDED, WILL CONT TO MONITOR CLOSELY
[2017-07-14 20:00] VITALS: BP 125/60
--- NOTE | 2017-07-14 20:00 | NUR ---
Received patient awake alert and oriented x 2.Follows simple commands.VS stable.SR with 1st degree AVB.Continued on same vent settings well tolerated.Suctioned secretion and oral care done.GT feeding infusing no residual noted.HOB elevated.IVF infusing to RAC site intact.Denies pain or any discomfort.Turned and repositioned.Daughter at bedside.
[2017-07-15] VITALS: BP 103/69
[2017-07-15 04:00] VITALS: BP 128/72
--- NOTE | 2017-07-15 06:44 | NUR ---
Patient resting vs stable.Night uneventful.Tolerating vent settings and GT feedings. Sacral wound dressing done per protocol.Incontinent of urine.Bathed and complete linens changed.Turned and repositioned.Blood sugar checked Q 8 Hrs and coverage given per sliding scale.Contact isolation for MRSA nares maintained.
[2017-07-15 08:00] VITALS: BP 115/71
[2017-07-15 12:00] VITALS: BP 116/50
--- NOTE | 2017-07-15 14:00 | NUR ---
RN NOTE PT DISCHARGED TO [facility] IN STABLE CONDITION, G TUBE CLAMPED, IV LINE AND ID BANDS REMOVED, EXIT CARE DONE, PNA VACCINE UP TO DATE, REFUSED FLU VACCINE REFERRING TO GET FLU SHOT AT DIALYSIS CENTER, PICTURES TAKEN, DISCHARGE INSTRUCTIONS PROVIDED ,TEACHING DONE TO PT PT AND VERBALIZED UNDERSTANDING, PT HAD NO BELONGNINGS, PAPERS SIGNED AND PT LEFT VIA AMBULANCE.
== END 2017-07-15 13:54 | DRG 377 ==
LOC: ER 20:07 → TELE-TD 23:44 → TELE1 07-15 11:45
PROVIDERS: ADMIT Internal Medicine Nephrology; ATTEND Internal Medicine Nephrology
PROC: 5A1945Z Respiratory Ventilation, 24-96 Consecutive Hours (ICD-10-PCS; principal; 2017-07-12)
DX: K92.0 Hematemesis (principal); L89.154 Pressure ulcer of sacral region, stage 4; Z99.11 Dependence on respirator [ventilator] status; J90 Pleural effusion, not elsewhere classified; J96.10 Chronic respiratory failure, unspecified whether with hypoxia or hypercapnia; Z93.0 Tracheostomy status; N18.6 End stage renal disease; I12.0 Hypertensive chronic kidney disease with stage 5 chronic kidney disease or end stage renal disease; L03.115 Cellulitis of right lower limb; R13.10 Dysphagia, unspecified; E11.22 Type 2 diabetes mellitus with diabetic chronic kidney disease; Z99.2 Dependence on renal dialysis; Z88.1 Allergy status to other antibiotic agents; Z93.1 Gastrostomy status; Z88.0 Allergy status to penicillin; Z88.8 Allergy status to other drugs, medicaments and biological substances; G40.909 Epilepsy, unspecified, not intractable, without status epilepticus; Z79.82 Long term (current) use of aspirin; Z79.899 Other long term (current) drug therapy; Z79.4 Long term (current) use of insulin; I48.91 Unspecified atrial fibrillation; E78.5 Hyperlipidemia, unspecified; D64.9 Anemia, unspecified; K21.9 Gastro-esophageal reflux disease without esophagitis; K57.30 Diverticulosis of large intestine without perforation or abscess without bleeding
CPT/HCPCS: 31720; 36415; 36600; 71010-TC; 80048-TC; 80076-TC; 82272-TC; 82962-TC; 83540-TC; 83690-TC; 83735-TC; 84100-TC; 85025-TC; 85730-TC; 86850-TC; 87081-TC; 90935-TC; 94002-TC; 94003-TC; 94760-TC; 99082-TC; A4606; A6248; A6253; A6402; A7526; C9113; J1815; J2405; J3490; J7030; Q0177; Z7610

== ENCOUNTER 2017-08-01 17:43 | Emergency (ER) | payer MEDICARE, OTHER ==
[~2017-08-01] VITALS: Ht 160 cm; Wt 72.6 kg
[2017-08-01] MEDS ORDERED: DIATR MEGLU/DIATRIZOATE SODIUM 30 ML BOTTLE (GASTROGRAPHIN) ONE (18:19)
--- NOTE | 2017-08-01 19:38 | NUR ---
CALLED FOR AMB PICKUP. ETA GIVEN 30-45 MINS
--- NOTE | 2017-08-01 20:28 | NUR ---
Called report to [facility]. Gave report to EMT's and RT. Gave pt's family d/c instructions, verbalized understanding.
[2017-08-01 20:30] VITALS: BP 105/49
== END 2017-08-01 20:31 ==
LOC: ER 17:44
DX: K94.23 Gastrostomy malfunction (principal); D64.9 Anemia, unspecified; E11.9 Type 2 diabetes mellitus without complications; I10 Essential (primary) hypertension; I48.91 Unspecified atrial fibrillation; Z79.82 Long term (current) use of aspirin; Z88.0 Allergy status to penicillin; Z88.8 Allergy status to other drugs, medicaments and biological substances; Z99.2 Dependence on renal dialysis
CPT/HCPCS: 43760; 74000; 99284; A4606; Q9963; Z7610

== ENCOUNTER 2017-08-12 06:45 | Emergency (ER) | payer MEDICARE, OTHER ==
[~2017-08-12] VITALS: Ht 165.1 cm; Wt 69.9 kg
--- NOTE | 2017-08-12 07:03 | NUR ---
PT CAME FROM [facility] FOR COMPLAINT OF LEFT UPPER ARM/SHOULDER PAIN, POSSIBLE FRACTURE. A/OX4. ON VENT VIA PORTEX 7 AT AC 16, TV 550, FIO2 30%, PEEP 5, TOLERATING WELL. BP WNL. TELE READS SR AT 76 BPM.
[2017-08-12 08:02] VITALS: BP 116/67
--- NOTE | 2017-08-12 09:11 | NUR ---
RT NOTE PT PLACED ON VENT PER MD ORDER. SETTINGS ENDORSED BY TRANSPORT RT AC 16 550 30% +5. PT VENTILATED VIA PORTEX 7 CUFFED TRACH TUBE. CUFF INFLATED. ALARMS SET PER PROTOCOL AND AUDIBLE. VENT PLUGGED IN TO RED OUTLET. AMBU BAG AT BED SIDE. NO DISTRESS NOTED WILL CONTINUE TO MONITOR, Addendum: 08/12/17 at 0913 by VANI MCDANIEL RT Amended: Links added.
[2017-08-12] MEDS ORDERED: LIDOCAINE HCL/MPF 1% 30 ML VIAL IJ ONE (09:47)
[2017-08-12] MEDS ORDERED: LIDOCAINE 1% INJ 50 ML MDV IJ ONE (10:00)
[2017-08-12 10:04] LABS: BASOPHILS % (AUTO) 0.1 % (0.0-2.0); EOSINOPHILS # (AUTO) 0.7 /CMM (0.0-0.7); HEMATOCRIT 29 % (39-51); HEMOGLOBIN 9.5 g/dL (13.5-17.5); LYMPHOCYTES # (AUTO) 0.7 /CMM (0.8-4.8); LYMPHOCYTES % (AUTO) 7.9 % (20.0-44.0); MEAN CORPUSCULAR HEMOGLOBIN 30 PG (26.0-33.0); MEAN CORPUSCULAR HGB CONC 33 g/dl (31.0-36.0); MEAN CORPUSCULAR VOLUME 94 fL (80-96); MONOCYTES # (AUTO) 0.7 /CMM (0.1-1.30); MONOCYTES % (AUTO) 7.5 % (2.0-12.0); NEUTROPHILS # (AUTO) 7.2 /CMM (1.8-8.9); NEUTROPHILS % (AUTO) 77.5 % (43.0-81.0); PLATELET COUNT (AUTO) 265 /CMM (150-450); RDW COEFFICIENT OF VARIATION 19.5 (11.5-15.0); RED BLOOD CELL COUNT(AUTO) 3.12 MIL/uL (4.5-6.0); WHITE BLOOD COUNT (AUTO) 9.3 K/uL (4.3-11.0)
[2017-08-12 10:13] LABS: CALCIUM, SERUM 9.8 mg/dL (8.5-10.1); CARBON DIOXIDE 22 mmol/L (21-32); CHLORIDE 101 mmol/L (98-107); CREATININE 4.6 mg/dL (0.6-1.3); GLUCOSE 152 mg/dL (74-106); POTASSIUM 4.2 mmol/L (3.5-5.1); SODIUM SERUM 136 mmol/L (136-145); UREA NITROGEN, BLOOD 53 mg/dL (7-18)
[2017-08-12 10:21] LABS: ALANINE AMINOTRANSFERASE 51 U/L (12-78); ALBUMIN 3.2 g/dL (3.4-5.0); ALKALINE PHOSPHATASE 201 U/L (46-116); ASPARTATE AMINOTRANSFERASE 43 U/L (15-37); BILIRUBIN,DIRECT 0.1 mg/dL (0.0-0.2); BILIRUBIN,TOTAL 0.3 mg/dL (0.2-1.0); TOTAL PROTEIN, SERUM 7.1 g/dL (6.4-8.2)
[2017-08-12 11:53] VITALS: BP 122/71
[2017-08-12] MEDS ORDERED: PROPOFOL 20 ML IV ONE (11:53)
--- NOTE | 2017-08-12 12:30 | NUR ---
VERBAL ORDER DR GARCIA GIVE PROPOFOL 40 MG VIA IV FOR MODERATE CONSCIOUS SEDATION
--- NOTE | 2017-08-12 12:34 | NUR ---
called eleanor sousa for pt admit.
--- NOTE | 2017-08-12 12:49 | NUR ---
CALLED FOR AMBULANCE PICKUP ETA: 45 MINS TRIP# [phone]
[2017-08-12] MEDS ORDERED: PROPOFOL 200 MG/20 ML VIAL IV ONE (13:00)
[2017-08-12] MEDS ORDERED: DEXT15DR6 EACHEYE (13:04)
[2017-08-12] MEDS ORDERED: ZINC220C6 GT (13:04)
[2017-08-12] MEDS ORDERED: SEVE0.8P PO (13:04)
[2017-08-12] MEDS ORDERED: LACT10SO GT (13:09)
[2017-08-12 13:32] VITALS: BP 117/60
--- NOTE | 2017-08-12 13:41 | NUR ---
Patient discharged to home in stable condition. Written and verbal after care instructions given. Patient verbalizes understanding of instruction.
--- NOTE | 2017-08-12 13:41 | NUR ---
IV removed. Catheter intact and site benign. Pressure and 4x4 applied to site. No bleeding noted.
== END 2017-08-12 14:00 | disposition home or self-care (01) ==
LOC: ER 06:47
DX: S43.015A Anterior dislocation of left humerus, initial encounter (principal); S52.122A Displaced fracture of head of left radius, initial encounter for closed fracture; S42.252A Displaced fracture of greater tuberosity of left humerus, initial encounter for closed fracture; S42.302A Unspecified fracture of shaft of humerus, left arm, initial encounter for closed fracture; D64.9 Anemia, unspecified; I48.91 Unspecified atrial fibrillation; Z86.73 Personal history of transient ischemic attack (TIA), and cerebral infarction without residual deficits; I13.2 Hypertensive heart and chronic kidney disease with heart failure and with stage 5 chronic kidney disease, or end stage renal disease; E11.22 Type 2 diabetes mellitus with diabetic chronic kidney disease; N18.6 End stage renal disease; I50.9 Heart failure, unspecified; Z88.0 Allergy status to penicillin; Z88.8 Allergy status to other drugs, medicaments and biological substances; Z99.2 Dependence on renal dialysis; Z93.1 Gastrostomy status; W18.49XA Other slipping, tripping and stumbling without falling, initial encounter; Y93.89 Activity, other specified; Y92.89 Other specified places as the place of occurrence of the external cause; Y99.8 Other external cause status
CPT/HCPCS: 36415; 72131; 72170; 72192; 73030; 73080; 80048; 80076; 83605; 85025; 85652; 86140; 87040 ×2; 87081; 99285; A4606; J2704; J3490; J7030; Z7610